=== PATIENT | female | born 1940 | race Caucasian/White ===

== ENCOUNTER → 2017-01-07 | Outpatient (CLI) | payer OTHER, MEDICARE ==
[~2017-01-07] MED LIST: ASCORBIC ACID500 M3 PO; ATIVAN1 MG PO; CENTRUM SILVER1 EAC3 PO; CORTISPORIN OIN15 GM TP; CYANOCOBALAM1000 MCG PO; DICLOFENAC SOD100 MG PO; LEVOXYL100 MCG PO; LOPRESSOR100 M1 PO
== END | disposition home or self-care (01) ==
DX: R26.2 Difficulty in walking, not elsewhere classified (principal); M25.562 Pain in left knee; M25.662 Stiffness of left knee, not elsewhere classified; M62.81 Muscle weakness (generalized); M17.12 Unilateral primary osteoarthritis, left knee
CPT/HCPCS: 97161 GP; 97165 GO; 97530 GP; 97537 GO; G8978 GP; G8979 GP; G8980 GP; G8987 GO; G8988 GO; G8989 GO